=== PATIENT | male | born 1930 | race Caucasian/White ===

== ENCOUNTER 2016-05-15 14:36 | Inpatient (IN) | payer OTHER ==
[~2016-05-15] VITALS: Ht 177.8 cm; Wt 71.5 kg
[2016-05-15 15:17] LABS: VENOUS PCO2 74 mm Hg (41-51)
[2016-05-15 15:22] LABS: CARBON DIOXIDE (BICARBONATE) > 40.0 MEQ/L (20-31)
[2016-05-15 15:28] LABS: HEMATOCRIT 36.5 % (38.0-50.0); MCH 27.7 PG (29.0-34.0); MCHC 29.9 G/DL (30.0-36.0); MCV 92.6 FL (86-99); MEAN PLAT.VOLUME 10.1 uM^3 (9.0-12.4); PLATELET COUNT 245 K/uL (156-360); RBC DIS.WIDTH-CV 15.1 % (11.8-14.6); RBC DIS.WIDTH-SD 49.5 % (39-53); RED BLOOD COUNT 3.94 M/uL (4.00-5.50); WHITE BLOOD COUNT 6.3 K/uL (4.1-10.2)
[2016-05-15 15:31] LABS: CHLORIDE 98 mEq/L (99-109); SODIUM 139 mEq/L (136-147)
[2016-05-15 15:33] LABS: GLUCOSE 129 mg/dL (70-99); PROTHROMBIN TIME 10.3 (9.2-11.2); PTT 30.3 (25-32)
[2016-05-15 15:34] LABS: ANION GAP 7 MEQ/L (2-14)
[2016-05-15 15:37] LABS: GFR ESTIMATE (CALCULATED) > 59 mL/min/
[2016-05-15 15:38] LABS: UREA NITROGEN (BUN) 19 mg/dL (9-23)
[2016-05-15 15:45] LABS: TROP-I INTERPRETATION NEGATIVE; TROPONIN-I 0.02 ng/mL (0.0-0.30)
[2016-05-15] MEDS ORDERED: HYDRALAZINE HCL25 MG PO (15:50)
[2016-05-15] MEDS ORDERED: ASCORBIC ACID500 M3 PO (15:50)
[2016-05-15] MEDS ORDERED: VITAMIN D31000 UNI2 PO (15:50)
[2016-05-15] MEDS ORDERED: LASIX20 MG PO (15:51)
[2016-05-15] MEDS ORDERED: ISORDIL,SORBITR40 M3 PO (15:51)
[2016-05-15] MEDS ORDERED: LIPITOR10 MG PO (15:51)
[2016-05-15] MEDS ORDERED: ELIQUIS5 MG PO (15:51)
[2016-05-15] MEDS ORDERED: COLACE100 MG PO (15:51)
[2016-05-15] MEDS ORDERED: ACIDOPHILUS-PE1 EAC2 PO (15:52)
[2016-05-15] MEDS ORDERED: AUGMENTIN500 MG PO (15:52)
[2016-05-15] MEDS ORDERED: KLOR-CON M2020 MEQ PO (15:53)
[2016-05-15] MEDS ORDERED: PHILLIPS'400 MG/5 M PO (15:54)
[2016-05-15] MEDS ORDERED: DULCOLAX10 MG PR (15:54)
[2016-05-15] MEDS ORDERED: FLEET ENEMA-AD118 ML PR (15:54)
[2016-05-15] MEDS ORDERED: DUONEB 2.5-0.5 M3 ML AEROSOL (15:55)
[2016-05-15] MEDS ORDERED: TYLENOL REGULA325 MG PO (15:55)
[2016-05-15 19:59] VITALS: BP 191/76
[2016-05-15 23:35] VITALS: BP 138/63
[2016-05-16 01:18] LABS: CARBON DIOXIDE (BICARBONATE) > 40.0 MEQ/L (20-31); VENOUS PCO2 66 mm Hg (41-51)
[2016-05-16 01:38] LABS: TROP-I INTERPRETATION NEGATIVE; TROPONIN-I 0.02 ng/mL (0.0-0.30)
[2016-05-16 03:50] VITALS: BP 184/78
[2016-05-16 07:11] LABS: ANION GAP 7 MEQ/L (2-14); CHLORIDE 97 MEQ/L (99-109); GFR ESTIMATE (CALCULATED) 56 mL/min/; GLUCOSE 158 mg/dL (70-99); POTASSIUM 4.8 MEQ/L (3.7-5.4); SAMPLE HEMOLYSIS CHECK 0; SAMPLE ICTERIC CHECK 0; SAMPLE LIPEMIA CHECK 0; SODIUM 139 MEQ/L (136-147); UREA NITROGEN (BUN) 21 mg/dL (9-23)
[2016-05-16 07:47] VITALS: BP 159/76
[2016-05-16 11:43] VITALS: BP 151/74
[2016-05-16 15:38] VITALS: BP 169/78
[2016-05-16 19:29] VITALS: BP 158/70
[2016-05-17 00:03] VITALS: BP 148/68
[2016-05-17 04:05] VITALS: BP 164/68
[2016-05-17 06:07] LABS: ANION GAP 7 MEQ/L (2-14); CHLORIDE 96 MEQ/L (99-109); GFR ESTIMATE (CALCULATED) 47 mL/min/; GLUCOSE 133 mg/dL (70-99); POTASSIUM 4.9 MEQ/L (3.7-5.4); SAMPLE HEMOLYSIS CHECK 0; SAMPLE ICTERIC CHECK 0; SAMPLE LIPEMIA CHECK 0; SODIUM 141 MEQ/L (136-147); UREA NITROGEN (BUN) 31 mg/dL (9-23)
[2016-05-17 08:07] VITALS: BP 152/86
[2016-05-17 10:52] LABS: TYPE OF FLUID PLEURAL
[2016-05-17 11:22] LABS: BODY FLUID RBC'S 4000 /MM^3 (0-100); BODY FLUID WBC'S 177 /MM^3 (0-500)
[2016-05-17 11:32] LABS: BODY FLUID LDH 61 IU/L
[2016-05-17 11:34] LABS: BODY FLUID EOSINOPHILS 0 % (0-25); MONO RAW COUNT 13; MONONUCLEAR WBC'S 13 %; POLY RAW COUNT 87; POLYNUCLEAR WBC'S 87 % (0-25)
[2016-05-17 12:09] VITALS: BP 146/65
[2016-05-17 16:05] VITALS: BP 116/58
[2016-05-17 20:26] VITALS: BP 126/57
[2016-05-18] VITALS (7 sets, daily range): BP systolic 126–167; BP diastolic 62–74
[2016-05-18 06:25] LABS: ANION GAP 5 MEQ/L (2-14); CHLORIDE 97 MEQ/L (99-109); GFR ESTIMATE (CALCULATED) 27 mL/min/; GLUCOSE 143 mg/dL (70-99); POTASSIUM 4.8 MEQ/L (3.7-5.4); SAMPLE HEMOLYSIS CHECK 0; SAMPLE ICTERIC CHECK 0; SAMPLE LIPEMIA CHECK 0; SODIUM 139 MEQ/L (136-147); UREA NITROGEN (BUN) 51 mg/dL (9-23)
[2016-05-19 03:49] VITALS: BP 160/70
[2016-05-19 06:21] LABS: HEMATOCRIT 32.8 % (38.0-50.0); MCH 28.1 PG (29.0-34.0); MCHC 30.8 G/DL (30.0-36.0); MCV 91.1 FL (86-99); MEAN PLAT.VOLUME 10.8 uM^3 (9.0-12.4); PLATELET COUNT 235 K/uL (156-360); RBC DIS.WIDTH-CV 15.2 % (11.8-14.6); RBC DIS.WIDTH-SD 51.2 % (39-53)
[2016-05-19 06:24] LABS: WHITE BLOOD COUNT 10.4 K/uL (4.1-10.2)
[2016-05-19 07:08] LABS: ALKALINE PHOSPHATASE 46 IU/L (3-129); ANION GAP 3 MEQ/L (2-14); CHLORIDE 96 MEQ/L (99-109); GFR ESTIMATE (CALCULATED) 32 mL/min/; GLUCOSE 126 mg/dL (70-99); POTASSIUM 5.6 MEQ/L (3.7-5.4); SAMPLE HEMOLYSIS CHECK 0; SAMPLE ICTERIC CHECK 0; SAMPLE LIPEMIA CHECK 0; SODIUM 139 MEQ/L (136-147); TOTAL BILIRUBIN 0.4 MG/DL (0.0-1.0); UREA NITROGEN (BUN) 57 mg/dL (9-23)
[2016-05-19 08:21] VITALS: BP 155/79
[2016-05-19 11:44] VITALS: BP 139/64
[2016-05-19 17:19] VITALS: BP 140/63
[2016-05-19 19:52] VITALS: BP 161/71
[2016-05-19 20:17] LABS: ADD MIUA? NO; BILIRUBIN NEGATIVE; BLOOD NEGATIVE; COLOR YELLOW ((YELLOW)); GLUCOSE (STRIP) NEGATIVE; KETONES NEGATIVE; LEUKOCYTES NEGATIVE; NITRITE NEGATIVE; PH, URINE 5.5 (5-8); PROTEIN (STRIP) NEGATIVE; SPECIFIC GRAVITY 1.018 (1.000-1.030); UROBILINOGEN 0.2 MG/DL (0.2-1.0)
[2016-05-19 20:31] LABS: UR CREATININE CONCENTRATION 91.6 MG/DL
[2016-05-19 23:29] VITALS: BP 142/70
[2016-05-20 03:57] VITALS: BP 169/81
[2016-05-20 06:51] LABS: HEMATOCRIT 33.8 % (38.0-50.0); MCH 27.6 PG (29.0-34.0); MCHC 30.2 G/DL (30.0-36.0); MCV 91.4 FL (86-99); MEAN PLAT.VOLUME 10.7 uM^3 (9.0-12.4); PLATELET COUNT 244 K/uL (156-360); RBC DIS.WIDTH-CV 15.3 % (11.8-14.6); RBC DIS.WIDTH-SD 51.4 % (39-53); WHITE BLOOD COUNT 13.2 K/uL (4.1-10.2)
[2016-05-20 07:13] LABS: ANION GAP 3 MEQ/L (2-14); CHLORIDE 96 MEQ/L (99-109); GFR ESTIMATE (CALCULATED) 29 mL/min/; GLUCOSE 157 mg/dL (70-99); MAGNESIUM 2.6 mg/dl (1.3-2.7); POTASSIUM 4.8 MEQ/L (3.7-5.4); SAMPLE HEMOLYSIS CHECK 0; SAMPLE ICTERIC CHECK 0; SAMPLE LIPEMIA CHECK 0; SODIUM 136 MEQ/L (136-147); UREA NITROGEN (BUN) 67 mg/dL (9-23); URIC ACID 6.1 mg/dL (3.1-9.2)
[2016-05-20 07:26] VITALS: BP 167/74
[2016-05-20 15:46] VITALS: BP 152/64
[2016-05-20 20:08] VITALS: BP 154/69
[2016-05-20 23:22] VITALS: BP 142/63
[2016-05-21 04:00] VITALS: BP 129/60
[2016-05-21 06:50] LABS: ANION GAP 8 MEQ/L (2-14); CHLORIDE 98 MEQ/L (99-109); GFR ESTIMATE (CALCULATED) 38 mL/min/; POTASSIUM 4.8 MEQ/L (3.7-5.4); SAMPLE HEMOLYSIS CHECK 0; SAMPLE ICTERIC CHECK 0; SAMPLE LIPEMIA CHECK 0; SODIUM 138 MEQ/L (136-147); UREA NITROGEN (BUN) 64 mg/dL (9-23)
[2016-05-21 07:04] LABS: GLUCOSE 108 mg/dL (70-99)
[2016-05-21 08:13] VITALS: BP 170/72
[2016-05-21 10:51] VITALS: BP 131/60
[2016-05-21 16:18] VITALS: BP 142/63
[2016-05-21 19:39] VITALS: BP 152/66
[2016-05-22 00:02] VITALS: BP 148/66
[2016-05-22 03:53] VITALS: BP 141/67
[2016-05-22 06:38] LABS: ANION GAP 3 MEQ/L (2-14); CHLORIDE 97 MEQ/L (99-109); GFR ESTIMATE (CALCULATED) 41 mL/min/; GLUCOSE 107 mg/dL (70-99); POTASSIUM 4.3 MEQ/L (3.7-5.4); SAMPLE HEMOLYSIS CHECK 0; SAMPLE ICTERIC CHECK 0; SAMPLE LIPEMIA CHECK 0; SODIUM 135 MEQ/L (136-147); UREA NITROGEN (BUN) 65 mg/dL (9-23)
[2016-05-22 08:35] VITALS: BP 155/69
[2016-05-22 11:45] VITALS: BP 128/58
[2016-05-22 19:43] VITALS: BP 132/63
[2016-05-22 23:45] VITALS: BP 137/64
[2016-05-23 03:54] VITALS: BP 147/65
[2016-05-23 06:21] LABS: ANION GAP 4 MEQ/L (2-14); CHLORIDE 99 MEQ/L (99-109); GFR ESTIMATE (CALCULATED) 41 mL/min/; GLUCOSE 99 mg/dL (70-99); POTASSIUM 4.7 MEQ/L (3.7-5.4); SAMPLE HEMOLYSIS CHECK 0; SAMPLE ICTERIC CHECK 0; SAMPLE LIPEMIA CHECK 0; SODIUM 137 MEQ/L (136-147); UREA NITROGEN (BUN) 60 mg/dL (9-23)
[2016-05-23 06:23] LABS: EOSINOPHIL (%) 5.8 % (0-5); EOSINOPHIL COUNT 0.5 K/uL (0-0.3); HEMATOCRIT 27.9 % (38.0-50.0); IMMATURE GRANULOCYTE (%) 0.6 % (0.0-0.7); IMMATURE GRANULOCYTE COUNT 0.1 K/uL; LYMPHOCYTE COUNT 0.6 K/uL (1.0-2.8); MCH 27.6 PG (29.0-34.0); MCHC 30.8 G/DL (30.0-36.0); MCV 89.4 FL (86-99); MEAN PLAT.VOLUME 10.7 uM^3 (9.0-12.4); MONOCYTE (%) 15.6 % (3-12); MONOCYTE COUNT 1.4 K/uL (0-0.8); NEUTROPHIL (%) 71.3 % (45-76); NEUTROPHIL COUNT 6.4 K/uL (1.8-6.4); PLATELET COUNT 195 K/uL (156-360); RBC DIS.WIDTH-CV 15.4 % (11.8-14.6); RBC DIS.WIDTH-SD 50.2 % (39-53); RED BLOOD COUNT 3.12 M/uL (4.00-5.50)
[2016-05-23 06:27] LABS: WHITE BLOOD COUNT 8.9 K/uL (4.1-10.2)
[2016-05-23 07:02] VITALS: BP 137/63
[2016-05-23 16:19] VITALS: BP 143/67
[2016-05-23 20:15] VITALS: BP 133/63
[2016-05-23 23:50] VITALS: BP 142/64
[2016-05-24 03:25] VITALS: BP 151/67
[2016-05-24 08:06] VITALS: BP 142/67
[2016-05-24] MEDS ORDERED: ELIQUIS2.5 MG PO (09:24)
[2016-05-24 12:17] VITALS: BP 149/66
[2016-05-24 13:11] VITALS: BP 164/80
== END 2016-05-24 13:28 | DRG 291 ==
LOC: EME 14:36 → EDOF 16:33 → 3EAST 16:33
PROVIDERS: Emergency Medicine; Hospitalist; Internal Medicine; Internal Medicine Nephrology; Internal Medicine Pulmonary Disease
DX: I50.32 Chronic diastolic (congestive) heart failure (principal); L89.323 Pressure ulcer of left buttock, stage 3; J15.9 Unspecified bacterial pneumonia; J44.0 Chronic obstructive pulmonary disease with (acute) lower respiratory infection; I42.9 Cardiomyopathy, unspecified; J98.11 Atelectasis; N17.9 Acute kidney failure, unspecified; J90 Pleural effusion, not elsewhere classified; J44.1 Chronic obstructive pulmonary disease with (acute) exacerbation; N18.3 Chronic kidney disease, stage 3 (moderate); R26.2 Difficulty in walking, not elsewhere classified; I12.9 Hypertensive chronic kidney disease with stage 1 through stage 4 chronic kidney disease, or unspecified chronic kidney disease; I48.2 Chronic atrial fibrillation; R06.02 Shortness of breath; L89.312 Pressure ulcer of right buttock, stage 2; E78.5 Hyperlipidemia, unspecified; L89.152 Pressure ulcer of sacral region, stage 2; I45.4 Nonspecific intraventricular block; S01.301A Unspecified open wound of right ear, initial encounter; K59.00 Constipation, unspecified; E78.00 Pure hypercholesterolemia, unspecified
CPT/HCPCS: 71010; 71020; 71250; 76770; 80048; 80048 91; 80053; 81003; 82570; 82803; 82945; 83605; 83615 91; 83735; 83880; 83986 90; 84100; 84156; 84157; 84484; 84550; 85025; 85027; 85610; 85730; 86038; 87040; 87070; 87075; 87205; 88108; 88305; 89051; 93005; 93306; 94640; 94640 76; 94760; 94799; 99202; 99281; 99285; C1729; J0696; J1940; J2543; J2920; J2930; J3010; J7030; J7050

== ENCOUNTER 2016-05-26 01:53 | Inpatient (IN) | payer OTHER ==
[~2016-05-26] VITALS: Ht 177.8 cm; Wt 72.6 kg
[~2016-05-26 01:53] MED LIST: ACIDOPHILUS-PE1 EAC2 PO; ASCORBIC ACID500 M3 PO; AUGMENTIN500 MG PO; COLACE100 MG PO; DULCOLAX10 MG PR; DUONEB 2.5-0.5 M3 ML AEROSOL; ELIQUIS2.5 MG PO; ELIQUIS5 MG PO; FLEET ENEMA-AD118 ML PR; HYDRALAZINE HCL25 MG PO; ISORDIL,SORBITR40 M3 PO; KLOR-CON M2020 MEQ PO; LASIX20 MG PO; LIPITOR10 MG PO; PHILLIPS'400 MG/5 M PO; TYLENOL REGULA325 MG PO; VITAMIN D31000 UNI2 PO
[2016-05-26 02:30] LABS: CARBON DIOXIDE (BICARBONATE) 33.3 MEQ/L (20-31); HEMATOCRIT 34.3 % (38.0-50.0); MCH 27.4 PG (29.0-34.0); MCHC 30.9 G/DL (30.0-36.0); MCV 88.6 FL (86-99); MEAN PLAT.VOLUME 10.3 uM^3 (9.0-12.4); PLATELET COUNT 333 K/uL (156-360); RBC DIS.WIDTH-SD 48.3 % (39-53); RED BLOOD COUNT 3.87 M/uL (4.00-5.50); WHITE BLOOD COUNT 14.3 K/uL (4.1-10.2)
[2016-05-26 02:37] LABS: CHLORIDE 102 mEq/L (99-109); POTASSIUM 4.3 mEq/L (3.7-5.4); SODIUM 139 mEq/L (136-147)
[2016-05-26 02:40] LABS: ANION GAP 9 MEQ/L (2-14); GLUCOSE 115 mg/dL (70-99)
[2016-05-26 02:42] LABS: GFR ESTIMATE (CALCULATED) > 59 mL/min/
[2016-05-26 02:43] LABS: UREA NITROGEN (BUN) 38 mg/dL (9-23)
[2016-05-26 02:49] LABS: TROP-I INTERPRETATION NEGATIVE; TROPONIN-I 0.02 ng/mL (0.0-0.30)
[2016-05-26] MEDS ORDERED: ISOSORBIDE DINI20 MG PO (10:31)
[2016-05-26 16:58] VITALS: BP 178/81
[2016-05-27 00:21] VITALS: BP 175/77
[2016-05-27 08:10] VITALS: BP 166/74
[2016-05-27 11:39] VITALS: BP 186/88
[2016-05-27 15:56] VITALS: BP 138/92
[2016-05-27 19:30] VITALS: BP 169/76
[2016-05-27 23:21] VITALS: BP 166/72
[2016-05-28 03:36] VITALS: BP 170/75
[2016-05-28 07:27] LABS: GFR ESTIMATE (CALCULATED) > 59 mL/min/
[2016-05-28 08:30] VITALS: BP 112/63
[2016-05-28 16:19] VITALS: BP 183/79
[2016-05-28 18:35] LABS: ADD MIUA? YES; BILIRUBIN NEGATIVE; BLOOD NEGATIVE; COLOR YELLOW ((YELLOW)); GLUCOSE (STRIP) NEGATIVE; KETONES NEGATIVE; LEUKOCYTES NEGATIVE; NITRITE NEGATIVE; PH, URINE 5.5 (5-8); PROTEIN (STRIP) TRACE; SPECIFIC GRAVITY 1.017 (1.000-1.030); UROBILINOGEN 0.2 MG/DL (0.2-1.0)
[2016-05-28 19:08] LABS: BACTERIA RARE; CRYSTALS NONE SEEN; EPITHELIAL CELLS NONE SEEN; MUCUS NONE SEEN; RED BLOOD CELLS 0-5 /HPF (0-5); WHITE BLOOD CELLS 0-5 /HPF (0-5)
[2016-05-28 19:09] LABS: CASTS NONE SEEN /LPF
[2016-05-28 19:21] VITALS: BP 154/76
[2016-05-28 20:55] VITALS: BP 170/80
[2016-05-28 22:04] LABS: POINT-OF-CARE METER ID UU13113725
[2016-05-28 23:03] VITALS: BP 138/75
[2016-05-29] VITALS (7 sets, daily range): BP systolic 127–174; BP diastolic 69–92
[2016-05-29 04:25] LABS: EOSINOPHIL (%) 3.5 % (0-5); EOSINOPHIL COUNT 0.4 K/uL (0-0.3); HEMATOCRIT 29.4 % (38.0-50.0); IMMATURE GRANULOCYTE (%) 0.6 % (0.0-0.7); IMMATURE GRANULOCYTE COUNT 0.6 K/uL; LYMPHOCYTE COUNT 0.9 K/uL (1.0-2.8); MCH 27.5 PG (29.0-34.0); MCHC 30.3 G/DL (30.0-36.0); MCV 90.7 FL (86-99); MEAN PLAT.VOLUME 9.7 uM^3 (9.0-12.4); MONOCYTE (%) 6.9 % (3-12); MONOCYTE COUNT 0.7 K/uL (0-0.8); NEUTROPHIL (%) 80.5 % (45-76); NEUTROPHIL COUNT 8.2 K/uL (1.8-6.4); PLATELET COUNT 295 K/uL (156-360); RBC DIS.WIDTH-CV 15.3 % (11.8-14.6); RBC DIS.WIDTH-SD 49.4 % (39-53); RED BLOOD COUNT 3.24 M/uL (4.00-5.50); WHITE BLOOD COUNT 10.2 K/uL (4.1-10.2)
[2016-05-29 04:36] LABS: CHLORIDE 105 mEq/L (99-109); POTASSIUM 4.9 mEq/L (3.7-5.4); SODIUM 137 mEq/L (136-147)
[2016-05-29 04:37] LABS: GLUCOSE 123 mg/dL (70-99)
[2016-05-29 04:39] LABS: ANION GAP 7 MEQ/L (2-14)
[2016-05-29 04:41] LABS: GFR ESTIMATE (CALCULATED) > 59 mL/min/
[2016-05-29 04:42] LABS: UREA NITROGEN (BUN) 37 mg/dL (9-23)
[2016-05-29 04:43] LABS: GFR ESTIMATE (CALCULATED) > 59 mL/min/
[2016-05-29 05:13] LABS: VANCOMYCIN, TROUGH 17.6 MCG/ML (10-20)
[2016-05-29 05:28] LABS: POINT-OF-CARE METER ID UU13113725
[2016-05-29 11:57] LABS: POINT-OF-CARE METER ID UU13113717
[2016-05-29 15:41] LABS: POINT-OF-CARE METER ID UU13113725
[2016-05-30 03:58] VITALS: BP 144/76
[2016-05-30 07:50] VITALS: BP 175/75
[2016-05-30 08:10] LABS: ANION GAP 3 MEQ/L (2-14); CHLORIDE 105 MEQ/L (99-109); GFR ESTIMATE (CALCULATED) > 59 mL/min/; GLUCOSE 106 mg/dL (70-99); POTASSIUM 4.8 MEQ/L (3.7-5.4); SAMPLE HEMOLYSIS CHECK 0; SAMPLE ICTERIC CHECK 0; SAMPLE LIPEMIA CHECK 0; SODIUM 139 MEQ/L (136-147); UREA NITROGEN (BUN) 32 mg/dL (9-23)
[2016-05-30 10:44] VITALS: BP 127/72
[2016-05-30 11:45] VITALS: BP 156/68
[2016-05-30 15:22] VITALS: BP 145/60
[2016-05-30 19:45] VITALS: BP 155/68
[2016-05-31] VITALS (7 sets, daily range): BP systolic 136–183; BP diastolic 64–93
[2016-06-01 05:17] VITALS: BP 154/67
[2016-06-01 06:24] LABS: GFR ESTIMATE (CALCULATED) > 59 mL/min/; UREA NITROGEN (BUN) 44 mg/dL (9-23)
[2016-06-01 07:00] VITALS: BP 179/75; BP 179/755
[2016-06-01 12:00] VITALS: BP 184/75
[2016-06-01 16:00] VITALS: BP 159/72
[2016-06-01 20:03] VITALS: BP 170/72
[2016-06-01 22:25] VITALS: BP 178/77
[2016-06-02] VITALS (7 sets, daily range): BP systolic 137–169; BP diastolic 13–83
[2016-06-03 03:04] VITALS: BP 145/67
[2016-06-03 06:58] LABS: HEMATOCRIT 23.9 % (38.0-50.0); MCH 27.8 PG (29.0-34.0); MCHC 30.1 G/DL (30.0-36.0); MCV 92.3 FL (86-99); MEAN PLAT.VOLUME 10.1 uM^3 (9.0-12.4); PLATELET COUNT 219 K/uL (156-360); RBC DIS.WIDTH-CV 15.4 % (11.8-14.6); RBC DIS.WIDTH-SD 52.1 % (39-53); RED BLOOD COUNT 2.59 M/uL (4.00-5.50); WHITE BLOOD COUNT 7.6 K/uL (4.1-10.2)
[2016-06-03 07:12] LABS: ALKALINE PHOSPHATASE 52 IU/L (3-129); ANION GAP 3 MEQ/L (2-14); CHLORIDE 100 MEQ/L (99-109); GFR ESTIMATE (CALCULATED) > 59 mL/min/; GLUCOSE 107 mg/dL (70-99); POTASSIUM 5.1 MEQ/L (3.7-5.4); SAMPLE HEMOLYSIS CHECK 0; SAMPLE ICTERIC CHECK 0; SAMPLE LIPEMIA CHECK 0; SODIUM 137 MEQ/L (136-147); TOTAL BILIRUBIN 0.4 MG/DL (0.0-1.0); UREA NITROGEN (BUN) 45 mg/dL (9-23)
[2016-06-03 07:15] VITALS: BP 140/54
[2016-06-03 19:20] VITALS: BP 134/62
[2016-06-03 22:00] VITALS: BP 175/70
[2016-06-03 23:55] VITALS: BP 142/65
[2016-06-04 04:00] VITALS: BP 155/70
[2016-06-04 07:28] VITALS: BP 159/71
[2016-06-04 12:00] VITALS: BP 154/69
[2016-06-04 16:46] VITALS: BP 158/68
[2016-06-04 19:26] VITALS: BP 170/87
[2016-06-04 22:34] VITALS: BP 155/71
[2016-06-05 04:54] VITALS: BP 146/77
[2016-06-05 08:00] VITALS: BP 175/75
[2016-06-05 12:00] VITALS: BP 165/70
[2016-06-05 15:55] VITALS: BP 190/70
[2016-06-05 23:39] VITALS: BP 165/69
[2016-06-06 04:12] VITALS: BP 145/87
[2016-06-06 08:37] VITALS: BP 163/75
[2016-06-06] MEDS ORDERED: ALPRAZOLAM0.25 M2 PO (08:40)
[2016-06-06] MEDS ORDERED: BUSPAR5 MG PO (08:40)
[2016-06-06] MEDS ORDERED: FUROSEMIDE20 MG PO (08:40)
[2016-06-06] MEDS ORDERED: MIRTAZAPINE15 MG PO (08:40)
[2016-06-06 09:05] LABS: ANION GAP 3 MEQ/L (2-14); CHLORIDE 100 MEQ/L (99-109); GFR ESTIMATE (CALCULATED) > 59 mL/min/; GLUCOSE 96 mg/dL (70-99); SAMPLE HEMOLYSIS CHECK 0; SAMPLE ICTERIC CHECK 0; SAMPLE LIPEMIA CHECK 0; SODIUM 141 MEQ/L (136-147); UREA NITROGEN (BUN) 38 mg/dL (9-23)
[2016-06-06 09:28] LABS: HEMATOCRIT 24.4 % (38.0-50.0); MCH 27.5 PG (29.0-34.0); MCHC 29.5 G/DL (30.0-36.0); MCV 93.1 FL (86-99); MEAN PLAT.VOLUME 10.3 uM^3 (9.0-12.4); PLATELET COUNT 235 K/uL (156-360); RBC DIS.WIDTH-CV 15.3 % (11.8-14.6); RBC DIS.WIDTH-SD 52.4 % (39-53); RED BLOOD COUNT 2.62 M/uL (4.00-5.50); WHITE BLOOD COUNT 7.7 K/uL (4.1-10.2)
[2016-06-06 12:29] VITALS: BP 176/71
== END 2016-06-06 14:32 | DRG 190 ==
LOC: EME 01:53 → EDOF 03:36 → 5EAST 03:36 → EDOF 10:49 → 5EAST 15:07 → 4EAST 06-03 21:33
PROVIDERS: Emergency Medicine; Internal Medicine; Internal Medicine Pulmonary Disease
PROC: 0W9B3ZZ Drainage of Left Pleural Cavity, Percutaneous Approach (ICD-10-PCS; principal; 2016-06-01)
DX: J44.1 Chronic obstructive pulmonary disease with (acute) exacerbation (principal); J18.9 Pneumonia, unspecified organism; I50.33 Acute on chronic diastolic (congestive) heart failure; J90 Pleural effusion, not elsewhere classified; N17.9 Acute kidney failure, unspecified; F05 Delirium due to known physiological condition; E46 Unspecified protein-calorie malnutrition; J98.11 Atelectasis; I69.351 Hemiplegia and hemiparesis following cerebral infarction affecting right dominant side; N18.9 Chronic kidney disease, unspecified; R09.02 Hypoxemia; I12.9 Hypertensive chronic kidney disease with stage 1 through stage 4 chronic kidney disease, or unspecified chronic kidney disease; I35.8 Other nonrheumatic aortic valve disorders; I48.2 Chronic atrial fibrillation; E78.5 Hyperlipidemia, unspecified; E88.09 Other disorders of plasma-protein metabolism, not elsewhere classified; I27.2 Other secondary pulmonary hypertension; K59.00 Constipation, unspecified; I70.1 Atherosclerosis of renal artery; K21.9 Gastro-esophageal reflux disease without esophagitis; F41.9 Anxiety disorder, unspecified; Z66 Do not resuscitate; D64.9 Anemia, unspecified; I49.5 Sick sinus syndrome; Z88.1 Allergy status to other antibiotic agents; Z79.01 Long term (current) use of anticoagulants; Z87.891 Personal history of nicotine dependence
CPT/HCPCS: 71010; 71020; 80048; 80048 91; 80053; 80202; 81003; 82565; 82607; 82803; 82948; 83605; 83880; 84484; 84520; 85025; 85027; 87040; 93005; 94640; 94640 76; 94760; 94799; 99202; 99281; 99285; J0692; J2060; J2270; J2930; J3370; J7050